=== PATIENT | female | born 1965 | race Caucasian/White ===

== ENCOUNTER 2016-08-07 06:57 | Inpatient (IN) | payer OTHER ==
[2016-07-26 14:13] VITALS: BMI 22.0
[~2016-08-07] VITALS: Ht 160 cm; Wt 56.4 kg
[2016-08-07] VITALS (8 sets, daily range): BP systolic 119–164; BP diastolic 72–96; PULSE 65–100; TEMP 36.8–37.1; O2SAT 97–100; Ht 160 cm; Wt 56.4 kg
[~2016-08-07 06:57] MED LIST: CEFAZOLIN 2000 MG/60 ML D5W IV SCH; LACTATED RINGER'S 1000ML 1,000 ML IV SCH; OMEG10007 PO; [UNRECOGNIZED DRUG - OTHER] PO
[2016-08-07] MEDS ORDERED: ONDANSETRON INJ 2 MG/ML 2 ML VIAL IV PRN ×2 (08:45→11:15)
[2016-08-07] MEDS ORDERED: FENTANYL CITRATE INJ 50 MCG/1 ML 2 ML VIAL IV PRN (08:45)
[2016-08-07] MEDS ORDERED: EpHEDrine SULFATE INJ 50 MG/ML AMP IV PRN (08:45)
[2016-08-07] MEDS ORDERED: LABETALOL HCL IV 5 MG/ML 20ML IV PRN (08:45)
[2016-08-07] MEDS ORDERED: ATROPINE SULFATE 0.1 MG/ML 5ML SYR IV PRN (08:45)
[2016-08-07] MEDS ORDERED: MEPERIDINE HCL 25 MG/ML CARP IV PRN (08:45)
[2016-08-07] MEDS ORDERED: HYDROmorphone INJ 1 MG/ML SYR IV PRN ×2 (08:45→11:15)
[2016-08-07] MEDS ORDERED: LIDOCAINE HCL 1% 20 ML VIAL ONE (09:06)
[2016-08-07] MEDS ORDERED: CEFAZOLIN SOD 1 GM VIAL ONE (09:06)
[2016-08-07] MEDS ORDERED: BUPIVACAINE 0.5 % 5 MG/1 ML MPF 30ML VIAL ONE (09:06)
[2016-08-07] MEDS ORDERED: DEXAMETHASONE SOD INJ 4 MG/ML VIAL ONE (09:12)
[2016-08-07] MEDS ORDERED: ROCURONIUM BROMIDE 10 MG/ML 5 ML VIAL ONE (09:12)
[2016-08-07] MEDS ORDERED: ONDANSETRON INJ 2 MG/ML 2 ML VIAL ONE (09:12)
[2016-08-07] MEDS ORDERED: GLYCOPYRROLATE INJ 0.2 MG/ML VIAL ONE (09:12)
[2016-08-07] MEDS ORDERED: PROPOFOL IV EMULSION 10 MG/ML 20 ML VIAL IV ONE (09:12)
[2016-08-07] MEDS ORDERED: FENTANYL CITRATE INJ 50 MCG/1 ML 2 ML VIAL ONE ×2 (09:12→10:17)
[2016-08-07] MEDS ORDERED: NEOSTIGMINE METHYLSULFATE 5 MG/5 ML SYR ONE (09:12)
[2016-08-07] MEDS ORDERED: LIDOCAINE HCL 2% 2 ML VIAL (20MG/ML) ONE (09:12)
[2016-08-07] MEDS ORDERED: MIDAZOLAM HCL 1 MG/ML 2ML VIAL ONE (09:12)
--- NOTE | 2016-08-07 11:08 | [facility] Post Operative Brief Note ---
Immediate Operative Summary Operative Date Aug 07, 2016. Pre-Operative Diagnosis Hernia at ileostomy site incisional hernia Post-Operative Diagnosis same as preoperative diagnosis Procedure(s) Performed Open Incisional Hernia Repair with Mesh Surgeon Dr. Donohue Dialysis Patient Care Technician Surgeon(s) Gino Reese PA-C Estimated Blood Loss 30ML Findings 5-6 cm defect with adherent small bowel used 11cm surgimesh Specimens A.Hernia sac Drains #[address] Rd JENNY to subcu Anesthesia gen Complication(s) None Disposition Recovery Room / PACU
[2016-08-07] MEDS ORDERED: HYDROCODONE/ACETAMOPHEN 5/325MG TAB PO PRN (11:15)
[2016-08-07] MEDS ORDERED: HYDROmorphone INJ 0.5 MG/0.5 ML SYR IV PRN (11:15)
[2016-08-07] MEDS ORDERED: PROMETHAZINE HCL INJ 25 MG in SODIUM CHLORIDE 0.9% 50ML 50 ML IV PRN (11:15)
--- NOTE | 2016-08-07 11:54 | Anesthesiology Progress Note ---
Anesthesia Post Op Note Date & Time Aug 07, 2016 at 11:54 Vital Signs Pain Intensity: 0 Vital Signs Past 12 Hours Date Time Temp Pulse Resp B/P Pulse Ox O2 Delivery O2 Flow Rate FiO2 08/07/16 11:45 71 16 170/95 100 Nasal Cannula 2 08/07/16 11:35 75 16 157/90 100 Nasal Cannula 2 08/07/16 11:25 78 16 151/88 100 Mask 10 08/07/16 11:18 36.2 87 16 162/102 100 Mask 10 08/07/16 07:25 36.9 100 18 164/96 100 Room Air Notes Mental Status: alert / awake / arousable, participated in evaluation Pt Amnestic to Procedure: Yes Nausea / Vomiting: adequately controlled Pain: adequately controlled Airway Patency, RR, SpO2: stable & adequate BP & HR: stable & adequate Hydration State: stable & adequate Anesthetic Complications: no major complications apparent
[2016-08-07] MEDS ORDERED: PROMETHAZINE HCL INJ 12.5 MG in SODIUM CHLORIDE 0.9% 50ML 50 ML IV PRN (13:00)
--- NOTE | 2016-08-07 14:05 | OPERATIVE REPORT ---
DATE OF OPERATION: 08/07/2016 NAME OF OPERATION: Incisional hernia repair with mesh. PREOPERATIVE DIAGNOSIS: Incisional hernia. POSTOPERATIVE DIAGNOSIS: Same. STAFF SURGEON: Dr. Donohue. CRUISE AGENT: Ariel Reese PA-C. ANESTHESIA: General. FINDINGS: The patient had a 5-6 cm defect at her previous ileostomy site with loops of small bowel incarcerated within the sac and adherent. The defect was approximately 5-6 cm. We used an 11 cm round piece of Surgimesh to repair the defect. PROCEDURE: The patient was brought in the operating room and placed on the operating table in supine position. Lim catheter, orogastric tube were placed. Her abdomen was prepped and draped in usual fashion. Longitudinal incision was made in a paramedian fashion to the right of the previous midline incision, carrying dissection down identifying the hernia sac, entering the sac and then identifying loops of small bowel within the sac and adherent to surrounding tissue. The sac was opened; it was debrided. With some mild difficulty the small bowel was mobilized away from the subcutaneous tissue and hernia sac and then in a retrofascial technique the fascia was mobilized approximately 4-5 cm intraabdominally. At this point, a piece of Surgimesh was obtained and trimmed to 11 cm. The polypropylene was placed toward the fascia. The silicone toward the bowel. It was placed in a retrofascial fashion and secured using interrupted 0 Vicryl suture. The site was irrigated with antibiotic solution and then the anterior tissue was closed over the mesh using #1 PDS and also 0 chromic catgut. 15 round Cy-Ngo drain placed in the subcutaneous space. Subcutaneous tissue reapproximated using 2-0 plain catgut suture then the skin reapproximated using claudine and interrupted 4-0 nylon suture. The patient was transferred to recovery room in stable condition. I attest to the content of the Intraoperative Record and any orders documented therein. Any exceptio ns are noted below.
[2016-08-07] MEDS: LACTATED RINGER'S 1000ML 1,000 ML IV SCH (14:13)
--- NOTE | 2016-08-07 14:24 | Medical Consult ---
Consultation Date of Consultation: Aug 07, 2016. Attending Physician: Mynor Donohue M.D. Reason for Consultation: Medical management History of Present Illness This is a 51 y/o female with a history of incisional hernia s/p ileostomy, h/o ruptured appendix with ischemic bowel, h/o bowel resection and previous ileostomy, and alopecia who presents s/p incisional hernia repair with Dr. Donohue on 08/07 for medical management. Patient has extensive abdominal surgery history. Into S1. Patient had a ruptured appendix with ischemic bowel, which resulted in a partial bowel resection and ileostomy that was later reversed. As result, she later developed an incarcerated hernia which resulted in a second ileostomy in 2014. This was reversed in October 2015. Around April 2016 , the patient developed an incisional hernia, which the patient had repaired today. Post operatively, the patient reports feeling well. She states that she has some soreness in her abdomen at the surgical site, but denies any other complaints. She has not eaten or passed gas yet had a bowel movement. A Lim catheter is in place draining clear urine. The patient denies fevers, chills, sweats, chest pain, palpitations, claudication, cough, wheezing, shortness of breath, nausea, vomiting, dysuria, hematuria, urinary retention, paralysis, weakness, numbness and tingling. Family History Diabetes mellitus Heart disease Leukemia Social History Smoking Status: Never Smoker Smokeless Tobacco Use: No Alcohol Use: none Drug Use: none Marital Status: Housing Status: lives with family Occupation Status: unemployed (housewife) Allergies Coded Allergies: Sulfa Antibiotics (Verified Allergy, Unknown, rash, 08/07/16) Current Inpatient Medications Current Inpatient Medications Medications (Trade) Dose Ordered Sig/Kristy Route Start Time Stop Time Status Last Admin Dose Admin Cefazolin Sodium 60 ml @ 100 mls/hr PREOP IV 08/07/16 06:00 08/07/16 18:00 08/07/16 09:25 100 MLS/HR Lactated Ringer's 1,000 ml @ 75 mls/hr [id number] IV 08/07/16 11:08 09/06/16 11:07 Cefazolin Sodium/ Dextrose (Ancef Iv/D5 50ml) 55 ml @ 100 mls/hr Q6H IV 08/07/16 16:00 08/17/16 11:59 Hydromorphone HCl (Dilaudid Inj) 0.5 mg Q3H PRN IV 08/07/16 11:15 08/21/16 11:14 Hydromorphone HCl (Dilaudid Inj) 1 mg Q3H PRN IV 08/07/16 11:15 08/21/16 11:14 Acetaminophen/ Hydrocodone Bitart ([place] 5/325 Tab) 1 tab Q4 PRN PO 08/07/16 11:15 08/21/16 11:14 Acetaminophen/ Hydrocodone Bitart 2 tab 2 tab Q4 PRN PO 08/07/16 11:15 08/21/16 11:14 Promethazine HCl/ Sodium Chloride (Phenergan Inj/ Nss 50ml) 51 ml @ 204 mls/hr Q6H PRN IV 08/07/16 11:15 09/06/16 11:14 Senna/Docusate Sodium (Senokot S Tab) 1 tab BID PO 08/07/16 21:00 09/06/16 20:59 Ondansetron HCl 4 mg 4 mg Q6H PRN IV 08/07/16 11:15 09/06/16 11:14 Promethazine HCl/ Sodium Chloride (Phenergan Inj/ Nss 50ml) 50.5 ml @ 204 mls/hr Q6H PRN IV 08/07/16 13:00 09/06/16 12:59 Review of Systems See HPI for pertinent positives and negatives. All other systems reviewed and negative. Physical Exam Date Time Temp Pulse Resp B/P Pulse Ox O2 Delivery O2 Flow Rate FiO2 08/07/16 12:20 64 16 148/92 100 Nasal Cannula 2 08/07/16 12:05 36.2 67 16 159/92 100 Nasal Cannula 2 08/07/16 11:55 36.2 68 16 158/91 100 Nasal Cannula 2 08/07/16 11:45 71 16 170/95 100 Nasal Cannula 2 08/07/16 11:35 75 16 157/90 100 Nasal Cannula 2 08/07/16 11:25 78 16 151/88 100 Mask 10 08/07/16 11:18 36.2 87 16 162/102 100 Mask 10 08/07/16 07:25 36.9 100 18 164/96 100 Room Air General Appearance: WD/WN, no apparent distress Head: normocephalic, atraumatic, + pertinent finding (alopecia) Eyes: normal inspection, PERRL, EOMI ENT: normal ENT inspection, hearing grossly normal, pharynx normal Neck: supple, no JVD, trachea midline Respiratory/Chest: lungs clear, normal breath sounds, no respiratory distress Cardiovascular: regular rate, rhythm, no gallop, no murmur Abdomen/GI: normal bowel sounds, soft, + tenderness (RUQ and RLQ TTP), + pertinent finding (Right side of abdomen covered in abds) Extremities/Musculoskelatal: normal inspection, no calf tenderness, no pedal edema Neurologic/Psych: alert, normal mood/affect, oriented x 3 Skin: normal color, warm/dry, no rash Laboratory Results Last 24 Hours Test 08/07/16 07:47 Assessment & Plan 51 y/o female with a history of incisional hernia s/p ileostomy, h/o ruptured appendix with ischemic bowel, h/o bowel resection and previous ileostomy, and alopecia who presents s/p incisional hernia repair with Dr. Donohue on 08/07 for medical management. -Pain management, DVT prophylaxis, and PT/OT as per primary team -Check CBC and PRP now and with am labs High blood pressure without diagnosis of hypertension--patient denies any history of hypertension -Cover with hydralazine 10 mg IV q6h prn SBP >180 Code Status -Level I, FULL RESUSCITATION STATUS Thank you for this consultation. We will continue to follow. I agree with PA assessment and plan S/P hernia repair, hx mult abd surgeries Abd soft ND NT BP uncontrolled Cont hydralazine PRN Hemodynamically stable No further recs at this time
[2016-08-07] MEDS ORDERED: HydrALAZINE HCL 20 MG/ML VIAL IV. PRN (14:30)
[2016-08-07 15:24] LABS: BASO % 0.1 %; BASO ABS # 0.01 K/uL (0-0.2); COMPLETE YES; EOS % 0.3 %; HEMATOCRIT 33.9 % (37-47); IG% 0.1 %; LYMPH % 11.2 %; LYMPH ABS # 0.77 K/uL (1.2-3.4); MEAN CELL VOLUME 78.5 fL (80-100); MEAN CORPUSCULAR HEMOGLOBIN 24.8 pg (25-34); MEAN CORPUSCULAR HGB CONC 31.6 g/dl (32-36); MEAN PLATELET VOLUME 8.1 fL (7.4-10.4); MONO % 1.6 %; NEUT % 86.7 %; PLATELET COUNT 277 K/uL (130-400); RED BLOOD COUNT 4.32 M/uL (4.2-5.4); WHITE BLOOD COUNT 6.88 K/uL (4.8-10.8)
[2016-08-07 15:46] LABS: BUN/CREATININE RATIO 9.9 (10-20); CALCIUM 8.3 mg/dl (8.5-10.1); CREATININE 0.79 mg/dl (0.60-1.20); POTASSIUM 3.8 mmol/L (3.5-5.1)
[2016-08-07] MEDS: CEFAZOLIN IV 1,000 MG in DEXTROSE 5% 50ML 50 ML IV SCH ×2 (16:05→22:29)
[2016-08-07] MEDS: DOCUSATE SODIUM/SENNA 50/8.6MG TAB PO SCH (20:52)
[2016-08-08] MEDS: LACTATED RINGER'S 1000ML 1,000 ML IV SCH ×2 (00:04→17:06)
[2016-08-08] MEDS: CEFAZOLIN IV 1,000 MG in DEXTROSE 5% 50ML 50 ML IV SCH ×4 (03:59→21:58)
[2016-08-08 04:00] VITALS: BP 147/83; PULSE 92; TEMP 37; O2SAT 96
[2016-08-08 05:32] LABS: HEMATOCRIT 30.2 % (37-47); MEAN CORPUSCULAR HEMOGLOBIN 25.3 pg (25-34); MEAN CORPUSCULAR HGB CONC 32.5 g/dl (32-36); PLATELET COUNT 263 K/uL (130-400); RED BLOOD COUNT 3.87 M/uL (4.2-5.4); WHITE BLOOD COUNT 8.25 K/uL (4.8-10.8)
[2016-08-08 05:56] LABS: BUN/CREATININE RATIO 9.7 (10-20); CALCIUM 7.6 mg/dl (8.5-10.1); CREATININE 0.95 mg/dl (0.60-1.20); PHOSPHORUS 3.3 mg/dl (2.5-4.9); POTASSIUM 4.2 mmol/L (3.5-5.1)
--- NOTE | 2016-08-08 06:28 | Surgery Progress Note ---
Surgery Progress Note Date of Service Aug 08, 2016. Subjective No nausea, No vomiting tolerating clear liquid, good UO Objective Vital Signs: Date Time Temp Pulse Resp B/P Pulse Ox O2 Delivery O2 Flow Rate FiO2 08/08/16 04:00 37.0 92 18 147/83 96 Room Air 08/08/16 00:10 Room Air 08/07/16 23:27 36.8 92 17 119/72 97 Room Air 08/07/16 19:15 37.1 91 16 122/75 98 Nasal Cannula 2.0 08/07/16 16:00 99 Nasal Cannula 2.0 08/07/16 15:47 36.9 72 20 127/77 99 Nasal Cannula 2.0 08/07/16 15:47 Room Air 08/07/16 15:45 36.9 67 153/90 100 Nasal Cannula 2.0 08/07/16 15:44 Nasal Cannula 08/07/16 13:30 65 18 134/85 99 Nasal Cannula 2.0 08/07/16 13:00 36.9 69 18 146/90 100 Nasal Cannula 2.0 08/07/16 12:20 64 16 148/92 100 Nasal Cannula 2 08/07/16 12:05 36.2 67 16 159/92 100 Nasal Cannula 2 08/07/16 11:55 36.2 68 16 158/91 100 Nasal Cannula 2 08/07/16 11:45 71 16 170/95 100 Nasal Cannula 2 08/07/16 11:35 75 16 157/90 100 Nasal Cannula 2 08/07/16 11:25 78 16 151/88 100 Mask 10 08/07/16 11:18 36.2 87 16 162/102 100 Mask 10 08/07/16 07:25 36.9 100 18 164/96 100 Room Air General Appearance: no apparent distress Respiratory/Chest: no respiratory distress Abdomen: soft Incision(s): intact, drainage (expected drainage) Laboratory Results: Results Past 24 Hours Test 08/07/16 07:47 08/07/16 14:58 08/08/16 05:15 Range/Units White Blood Count 6.88 8.25 4.8-10.8 K/uL Red Blood Count 4.32 3.87 4.2-5.4 M/uL Hemoglobin 10.7 9.8 12.0-16.0 g/dL Hematocrit 33.9 30.2 37-47 % Mean Corpuscular Volume 78.5 78.0 80-100 fL Mean Corpuscular Hemoglobin 24.8 25.3 25-34 pg Mean Corpuscular Hemoglobin Concent 31.6 32.5 32-36 g/dl Platelet Count 277 263 130-400 K/uL Mean Platelet Volume 8.1 8.0 7.4-10.4 fL Neutrophils (%) (Auto) 86.7 % Lymphocytes (%) (Auto) 11.2 % Monocytes (%) (Auto) 1.6 % Eosinophils (%) (Auto) 0.3 % Basophils (%) (Auto) 0.1 % Neutrophils # (Auto) 5.96 1.4-6.5 K/uL Lymphocytes # (Auto) 0.77 1.2-3.4 K/uL Monocytes # (Auto) 0.11 0.11-0.59 K/uL Eosinophils # (Auto) 0.02 0-0.5 K/uL Basophils # (Auto) 0.01 0-0.2 K/uL RDW Standard Deviation 47.0 46.6 36.4-46.3 fL RDW Coefficient of Variation 16.3 16.4 11.5-14.5 % Immature Granulocyte % (Auto) 0.1 % Immature Granulocyte # (Auto) 0.01 0.00-0.02 K/uL Sodium Level 143 143 136-145 mmol/L Potassium Level 3.8 4.2 3.5-5.1 mmol/L Chloride Level 108 108 98-107 mmol/L Carbon Dioxide Level 27 29 21-32 mmol/L Anion Gap 8.0 6.0 3-11 mmol/L Blood Urea Nitrogen 8 9 7-18 mg/dl Creatinine 0.79 0.95 0.60-1.20 mg/dl Est Creatinine Clear Calc Drug Dose 69.7 57.9 ml/min Estimated GFR () 100.5 80.4 Estimated GFR (Non- 86.7 69.4 BUN/Creatinine Ratio 9.9 9.7 10-20 Random Glucose 120 89 70-99 mg/dl Calcium Level 8.3 7.6 8.5-10.1 mg/dl Phosphorus Level 3.3 2.5-4.9 mg/dl Magnesium Level 2.0 1.8-2.4 mg/dl Assessment & Plan 08/08/16- s/p Incisional hernia repair with Lysis of adesions- d/c bennett, adv diet, cont atbx, mobilize- concern for ileus with manipulation of small bowel
--- NOTE | 2016-08-08 07:55 | Anesthesiology Progress Note ---
Anesthesia Post Op Note Date & Time Aug 08, 2016 at 07:55 Vital Signs Pain Intensity: 0.0 Vital Signs Past 12 Hours Date Time Temp Pulse Resp B/P Pulse Ox O2 Delivery O2 Flow Rate FiO2 08/08/16 04:00 37.0 92 18 147/83 96 Room Air 08/08/16 00:10 Room Air 08/07/16 23:27 36.8 92 17 119/72 97 Room Air Notes Mental Status: alert / awake / arousable, participated in evaluation Pt Amnestic to Procedure: Yes Nausea / Vomiting: adequately controlled Pain: adequately controlled Airway Patency, RR, SpO2: stable & adequate BP & HR: stable & adequate Hydration State: stable & adequate Anesthetic Complications: no major complications apparent
[2016-08-08] MEDS: HYDROCODONE/ACETAMOPHEN 5/325MG TAB PO PRN ×3 (08:01→19:38)
[2016-08-08 08:08] VITALS: BP 158/92; PULSE 87; TEMP 36.8; O2SAT 98
[2016-08-08] MEDS: DOCUSATE SODIUM/SENNA 50/8.6MG TAB PO SCH ×2 (08:28→21:00)
[2016-08-08 11:41] VITALS: BP 137/86; PULSE 84; TEMP 37.1; O2SAT 97
--- NOTE | 2016-08-08 12:52 | Hospitalist Progress Note ---
Hospitalist Progress Note Date of Service Aug 08, 2016. (Juliet Restrepo PA-C) Subjective Pt evaluation today including: conversation w/ patient, physical exam, chart review, lab review, review of inpatient medication list Patient denies any significant abdominal pain. No nausea. She has not yet passed gas or had any bowel movements since the surgery. She had cream of wheat this morning and tolerated it. Additional Comments: 6 system review negative. Please see pertinent positives in the history of present illness section. (Juliet Restrepo PA-C) Objective Vital Signs Date Time Temp Pulse Resp B/P Pulse Ox O2 Delivery O2 Flow Rate FiO2 08/08/16 11:41 37.1 84 16 137/86 97 Room Air 08/08/16 08:08 36.8 87 16 158/92 98 Room Air 08/08/16 08:01 Room Air 08/08/16 04:00 37.0 92 18 147/83 96 Room Air 08/08/16 00:10 Room Air 08/07/16 23:27 36.8 92 17 119/72 97 Room Air 08/07/16 19:15 37.1 91 16 122/75 98 Nasal Cannula 2.0 08/07/16 16:00 99 Nasal Cannula 2.0 08/07/16 15:47 36.9 72 20 127/77 99 Nasal Cannula 2.0 08/07/16 15:47 Room Air 08/07/16 15:45 36.9 67 153/90 100 Nasal Cannula 2.0 08/07/16 15:44 Nasal Cannula 08/07/16 13:30 65 18 134/85 99 Nasal Cannula 2.0 08/07/16 13:00 36.9 69 18 146/90 100 Nasal Cannula 2.0 (Juliet Restrepo PA-C) Physical Exam General Appearance: no apparent distress Eyes: EOMI Neck: no JVD Respiratory/Chest: lungs clear Cardiovascular: regular rate, rhythm Abdomen: soft, + pertinent finding (mild tenderness to palpation in the left lower quadrant. Dressing clean, dry and intact. Nondistended. Bowel sounds present.) Extremities: non-tender, no pedal edema Neurologic/Psychiatric: no motor/sensory deficits, oriented x 3 Skin: warm/dry (Juliet Restrepo PA-C) Laboratory Results 08/08/16 05:15 08/08/16 05:15 Test 08/07/16 14:58 08/08/16 05:15 Immature Granulocyte % (Auto) 0.1 % White Blood Count 6.88 K/uL (4.8-10.8) Red Blood Count 4.32 M/uL (4.2-5.4) 3.87 M/uL (4.2-5.4) Hemoglobin 10.7 g/dL (12.0-16.0) Hematocrit 33.9 % (37-47) Mean Corpuscular Volume 78.5 fL (80-100) 78.0 fL (80-100) Mean Corpuscular Hemoglobin 24.8 pg (25-34) 25.3 pg (25-34) Mean Corpuscular Hemoglobin Concent 31.6 g/dl (32-36) 32.5 g/dl (32-36) Platelet Count 277 K/uL (130-400) Mean Platelet Volume 8.1 fL (7.4-10.4) 8.0 fL (7.4-10.4) Neutrophils (%) (Auto) 86.7 % Lymphocytes (%) (Auto) 11.2 % Monocytes (%) (Auto) 1.6 % Eosinophils (%) (Auto) 0.3 % Basophils (%) (Auto) 0.1 % Neutrophils # (Auto) 5.96 K/uL (1.4-6.5) Lymphocytes # (Auto) 0.77 K/uL (1.2-3.4) Monocytes # (Auto) 0.11 K/uL (0.11-0.59) Eosinophils # (Auto) 0.02 K/uL (0-0.5) Basophils # (Auto) 0.01 K/uL (0-0.2) Immature Granulocyte # (Auto) 0.01 K/uL (0.00-0.02) RDW Standard Deviation 46.6 fL (36.4-46.3) RDW Coefficient of Variation 16.4 % (11.5-14.5) Anion Gap 6.0 mmol/L (3-11) Est Creatinine Clear Calc Drug Dose 57.9 ml/min Estimated GFR () 80.4 Estimated GFR (Non- 69.4 BUN/Creatinine Ratio 9.7 (10-20) Calcium Level 7.6 mg/dl (8.5-10.1) Phosphorus Level 3.3 mg/dl (2.5-4.9) Magnesium Level 2.0 mg/dl (1.8-2.4) Last 24 Hours Test 08/07/16 14:58 08/08/16 05:15 White Blood Count 6.88 K/uL 8.25 K/uL Red Blood Count 4.32 M/uL 3.87 M/uL Hemoglobin 10.7 g/dL 9.8 g/dL Hematocrit 33.9 % 30.2 % Mean Corpuscular Volume 78.5 fL 78.0 fL Mean Corpuscular Hemoglobin 24.8 pg 25.3 pg Mean Corpuscular Hemoglobin Concent 31.6 g/dl 32.5 g/dl Platelet Count 277 K/uL 263 K/uL Mean Platelet Volume 8.1 fL 8.0 fL Neutrophils (%) (Auto) 86.7 % Lymphocytes (%) (Auto) 11.2 % Monocytes (%) (Auto) 1.6 % Eosinophils (%) (Auto) 0.3 % Basophils (%) (Auto) 0.1 % Neutrophils # (Auto) 5.96 K/uL Lymphocytes # (Auto) 0.77 K/uL Monocytes # (Auto) 0.11 K/uL Eosinophils # (Auto) 0.02 K/uL Basophils # (Auto) 0.01 K/uL RDW Standard Deviation 47.0 fL 46.6 fL RDW Coefficient of Variation 16.3 % 16.4 % Immature Granulocyte % (Auto) 0.1 % Immature Granulocyte # (Auto) 0.01 K/uL Sodium Level 143 mmol/L 143 mmol/L Potassium Level 3.8 mmol/L 4.2 mmol/L Chloride Level 108 mmol/L 108 mmol/L Carbon Dioxide Level 27 mmol/L 29 mmol/L Anion Gap 8.0 mmol/L 6.0 mmol/L Blood Urea Nitrogen 8 mg/dl 9 mg/dl Creatinine 0.79 mg/dl 0.95 mg/dl Est Creatinine Clear Calc Drug Dose 69.7 ml/min 57.9 ml/min Estimated GFR () 100.5 80.4 Estimated GFR (Non- 86.7 69.4 BUN/Creatinine Ratio 9.9 9.7 Random Glucose 120 mg/dl 89 mg/dl Calcium Level 8.3 mg/dl 7.6 mg/dl Phosphorus Level 3.3 mg/dl Magnesium Level 2.0 mg/dl (Juliet Restrepo, CHAUNCEY) Assessment and Plan 51 y/o female with a history of incisional hernia s/p ileostomy, h/o ruptured appendix with ischemic bowel, h/o bowel resection and previous ileostomy, and alopecia who presents s/p open incisional hernia repair with Dr. Donohue on 08/07 for medical management. Hernia repair -Pain management, DVT prophylaxis, and PT/OT as per primary team High blood pressure without diagnosis of hypertension--patient denies any history of hypertension. BP improved today -Cover with hydralazine 10 mg IV q6h prn SBP >180 -f/u with PCP within one week for a BP recheck Code Status -Level I, FULL RESUSCITATION STATUS Stable for D/C from a medical stand point. The medicine service will sign off. [facility]. (Juliet Restrepo PA-C) PA Physician Supervision Note: I discussed with Juliet Restrepo PAC and agree with findings and plan as documented in the note. Any exceptions or clarifications are listed here: None Pt s/p incisional hernia repair with some post op blood pressure elevation vs show bp 150's over 90's no associated symptoms abd is soft and only minimally tender blood pressure control with prn hydralazine, encourage outpt blood pressure checks before starting daily med Documented By: Fitz Jewell (Fitz Jewell M.D.)
[2016-08-08 15:00] VITALS: BP 150/96; PULSE 96; TEMP 37.1; O2SAT 99
[2016-08-08 15:01] LABS: PARTIAL THROMBOPLASTIN RATIO 0.9; PROTHROMBIN TIME (PATIENT) 10.3 SECONDS (9.0-12.0)
[2016-08-08 16:00] VITALS: O2SAT 99
[2016-08-08] MEDS: HEPARIN SOD 5000 UNIT/0.5 ML CARP SQ SCH (17:03)
[2016-08-08 22:50] VITALS: BP 138/89; PULSE 94; TEMP 37; O2SAT 97
[2016-08-09] MEDS: CEFAZOLIN IV 1,000 MG in DEXTROSE 5% 50ML 50 ML IV SCH ×4 (04:11→21:20)
[2016-08-09] MEDS: HYDROCODONE/ACETAMOPHEN 5/325MG TAB PO PRN ×2 (04:15→15:50)
[2016-08-09] MEDS: HEPARIN SOD 5000 UNIT/0.5 ML CARP SQ SCH ×2 (05:27→18:00)
--- NOTE | 2016-08-09 06:49 | Surgery Progress Note ---
Surgery Progress Note Date of Service Aug 09, 2016. Subjective + flatus, No nausea, No vomiting feels ok, no bowel movement yet Objective Vital Signs: Date Time Temp Pulse Resp B/P Pulse Ox O2 Delivery O2 Flow Rate FiO2 08/08/16 23:45 Room Air 08/08/16 22:50 37.0 94 16 138/89 97 Room Air 08/08/16 16:00 99 Room Air 08/08/16 15:00 37.1 96 18 150/96 99 Room Air 08/08/16 11:41 37.1 84 16 137/86 97 Room Air 08/08/16 08:08 36.8 87 16 158/92 98 Room Air 08/08/16 08:01 Room Air General Appearance: no apparent distress Respiratory/Chest: no respiratory distress Abdomen: + distended Incision(s): intact Laboratory Results: Results Past 24 Hours Test 08/08/16 14:38 08/09/16 05:21 Range/Units Prothrombin Time 10.3 9.0-12.0 SECONDS Prothromb Time International Ratio 1.0 0.9-1.1 Activated Partial Thromboplast Time 24.0 21.0-31.0 SECONDS Partial Thromboplastin Ratio 0.9 Assessment & Plan 08/09/16- slow progress, not much bowel function yet- cont full liquids cont IV atbx- leave drain 08/08/16- s/p Incisional hernia repair with Lysis of adesions- d/c bennett, adv diet, cont atbx, mobilize- concern for ileus with manipulation of small bowel 08/08/16- s/p Incisional hernia repair with Lysis of adesions- d/c bennett, adv diet, cont atbx, mobilize- concern for ileus with manipulation of small bowel
[2016-08-09 07:30] VITALS: BP 133/87; PULSE 86; TEMP 36.8; O2SAT 97
[2016-08-09 07:31] LABS: BUN/CREATININE RATIO 9.9 (10-20); CALCIUM 8.2 mg/dl (8.5-10.1); CREATININE 0.78 mg/dl (0.60-1.20); MAGNESIUM 1.8 mg/dl (1.8-2.4); POTASSIUM 3.8 mmol/L (3.5-5.1)
[2016-08-09 07:32] LABS: PHOSPHORUS 3.5 mg/dl (2.5-4.9)
[2016-08-09] MEDS: DOCUSATE SODIUM/SENNA 50/8.6MG TAB PO SCH ×2 (09:20→20:36)
[2016-08-09 15:30] VITALS: BP 144/93; PULSE 86; TEMP 37.8; O2SAT 97
[2016-08-09 21:22] VITALS: TEMP 36.9
[2016-08-10 00:14] VITALS: BP 134/84; PULSE 93; TEMP 36.9; O2SAT 95
[2016-08-10] MEDS: CEFAZOLIN IV 1,000 MG in DEXTROSE 5% 50ML 50 ML IV SCH (04:30)
[2016-08-10] MEDS: HEPARIN SOD 5000 UNIT/0.5 ML CARP SQ SCH (05:43)
[2016-08-10] MEDS ORDERED: HYDR-5688 PO (06:35)
[2016-08-10] MEDS ORDERED: CEPH500C2 PO (06:35)
--- NOTE | 2016-08-10 06:40 | Discharge Instructions ---
Discharge Instructions Date of Service Aug 10, 2016. Admission Reason for Admission: Incisional Hernia Discharge Discharge Diagnosis / Problem: incisional hernia Discharge Goals Goal(s): Decrease discomfort, Improve function, Improve disease control Activity Recommendations Activity Limitations: as noted below Lifting Limitations: no more than 10 pounds Exercise/Sports Limitations: until after follow-up appointment May Resume Sexual Activity: when tolerated Shower/Bathe: tomorrow (may wash over incision, do not soak in bathtub until all sutures and claudine removed) SPECIAL CARE INSTRUCTIONS: * Cover incisions and change daily for comfort/drainage. * Try to wear binder when out of bed as tolerated for 2 weeks * May use ibuprofen for pain as tolerated. * Expect some swelling and bruising. Call your doctor if: * Temperature above 101 degrees * Pain not relieved by pain medicine ordered * There is increased drainage or redness from any incision * You have any unanswered questions or concerns [phone]. FOLLOW UP VISIT: If not already scheduled, please call the office for a follow-up visit. for next Sun or wound check and some staple removal OFFICE PHONE NUMBER: Dr. Donohue Office . Current Hospital Diet Patient's current hospital diet: Low Fiber Diet Discharge Diet Recommended Diet: Regular Diet Procedures Procedures Performed: Open Incisional Hernia Repair with Mesh Pending Studies Studies pending at discharge: no Medical Emergencies . Who to Call and When: Medical Emergencies: If at any time you feel your situation is an emergency, please call 911 immediately. . Non-Emergent Contact Non-Emergency issues call your: Surgeon . "Provider Documentation" section prepared by Mynor Donohue. VTE Core Measure Inpt VTE Proph given/why not?: Unfractionated heparin SQ, SCD's
--- NOTE | 2016-08-10 07:06 | DISCHARGE SUMMARY ---
PRINCIPAL DIAGNOSIS: Incisional hernia. PROCEDURES: The patient underwent open incisional hernia repair with mesh with drain placement. HISTORY OF PRESENT ILLNESS: The patient is a 51-year-old female who has had prior abdominal surgery with recurrent incisional hernia. HOSPITAL COURSE: The patient was brought into the hospital on 08/07/2016. She was taken to the operating room where she underwent open incisional hernia repair with mesh and drain placement. The patient did have significant adhesions but has progressed well in both diet and activity and is felt stable for discharge home today to be followed in the surgical clinic next week. We will discontinue her drain prior to discharge home.
[2016-08-10 07:31] VITALS: BP 134/86; PULSE 89; TEMP 36.6; O2SAT 98
[2016-08-10] MEDS: DOCUSATE SODIUM/SENNA 50/8.6MG TAB PO SCH (09:00)
[2016-08-10] MEDS ORDERED: CEPHALEXIN MONOHYDRATE 500 MG CAP PO SCH (09:00)
[2016-08-10 09:18] VITALS: BP 134/86; PULSE 89; TEMP 36.6; O2SAT 98
== END 2016-08-10 09:45 | disposition home or self-care (01) | DRG 354 ==
LOC: ENRESERVTM → ENRESERVDT → CANRESERV → C.ACU 06:57 → UNDOADMIN 11:12 → C.MSN 11:12 → EDBEDREQ 12:07
PROVIDERS: ADMIT Surgery; ATTEND Surgery
PROC: 0WUF0JZ Supplement Abdominal Wall with Synthetic Substitute, Open Approach (ICD-10-PCS; principal; 2016-08-07 08:30)
PROC: 0WQF0ZZ Repair Abdominal Wall, Open Approach (ICD-10-PCS; principal; 2016-08-07 08:30)
DX: K43.0 Incisional hernia with obstruction, without gangrene (principal); K94.19 Other complications of enterostomy; I10 Essential (primary) hypertension; I97.3 Postprocedural hypertension; Z98.0 Intestinal bypass and anastomosis status; Y83.3 Surgical operation with formation of external stoma as the cause of abnormal reaction of the patient, or of later complication, without mention of misadventure at the time of the procedure; Z88.2 Allergy status to sulfonamides